=== PATIENT | male | born 1950 | race Caucasian/White ===

== ENCOUNTER 2022-09-08 11:21 | Emergency (ER) | payer MEDICARE, MEDICAID, SELFPAY ==
[2022-09-08 11:22] VITALS: BP 137/92; PULSE 77; RESP 18; TEMP 36.6; O2SAT 100; BMI 28.8
--- NOTE | 2022-09-08 11:37 | ED.VIS.BACK ---
HPI History of Present Illness Chief Complaint: Back Informant: patient Narrative Narrative: Patient has been having pain across his low back worse on the left for about the past week. Gradual in onset, progressively worsening, nothing sudden. 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 He denies any radiation into his lower extremities or numbness, tingling, weakness. No bowel or bladder dysfunction or abdominal pain, no falls or other injuries. Prior similar symptoms: Yes and With Prior Back Pain PFSH PFSH Home Medications hydrocodone-acetaminophen 5-325mg 5mg-325mg 1 tab PO Q4H PRN PRN Pain 2 days #10 TABLETS 09/08/22 [Rx Last Taken Unknown] Allergy/AdvReac Type Severity Reaction Status Date / Time No Known Allergies Allergy Verified 09/08/22 11:23 Social History Smoking Status: Never smoker ROS ROS ED Constitutional Constitutional ED: Denies chills or fever(s) Gastrointestinal Gastrointestinal: Denies abdominal pain, constipation, fecal incontinence, nausea or vomiting Genitourinary Genitourinary ED: Reports other Details: no urinary retention ; Denies abdominal discomfort or urinary incontinence Musculoskeletal Musculoskeletal: Reports as per HPI and back pain; Denies neck pain Integumentary Denies rash or wounds Neurologic Neurologic: Denies headache(s), paresthesias or weakness EXAM Physical Exam Const Vital Signs: 09/08/22 11:22 Temperature 97.8 F Temperature Source Temporal Pulse Rate 77 Respiratory Rate 18 Blood Pressure 137/92 H Blood Pressure Mean 107 Pulse Ox 100 Oxygen Delivery Method Room Air Positive well nourished and well developed General Appearance ED: well developed and NAD HEENT Negative for trauma or tenderness Eyes PERRL and EOMs intact bilaterally Neck full ROM and supple GI normal to inspection, nondistended, normoactive bowel sounds, soft to palpation and non-tender Back/Spine normal to inspection Back/Spine Narrative: Painful range of motion, but patient is able. He has 2 back braces on that he states helps some. He does not have any significant midline tenderness or step-offs, he is very tender in the left paraspinal area but not distally in the SI joint. No discomfort/tenderness on the right. No CVA tenderness. Normal inspection no rashes. Lumbar Spine / Lower Back: ROM limited, paraspinal muscle tenderness and straight leg raise negative bilaterally; Negative for lumbar spinal tenderness Extremity normal to inspection, full ROM and no pedal edema Neuro oriented x3 and no sensory deficits noted Sensorium / Orientation: alert Motor Exam: strength 5/5 throughout and clonus absent Deep Tendon Reflexes: Rt Patellar (L4): 2+, Lt Patellar (L4): 2+, Rt Ankle (S1): 2+ and Lt Ankle (S1): 2+ Deep Tendon Reflexes Back: Rt Patellar (L4): 2+, Lt Patellar (L4): 2+, Rt Ankle (S1): 2+ and Lt Ankle (S1): 2+ Plantar Reflex: Downgoing: bilateral Psych mental status grossly normal and thought process normal Skin no rashes or lesions noted and no wounds MDM MDM MDM Narrative Medical decision making narrative: Given his age I did obtain x-rays of the lumbosacral spine, 3 views of my interpretation negative for any acute, radiology in agreement. They noted pancreatic calcifications. I do not think this patient is having any symptoms related to that, I think it is an incidental finding. In the meantime he was given a [place] and he really felt a lot better, I am fine with prescribing him a short course of this, I think this is all musculoskeletal discomfort, supportive care and follow-up advised. Ambulatory around the room on reevaluation. Radiography Diagnostic Testing: Clinical Impression(s) from Imaging Studies Lumbar Spine X-Ray 09/08/22 11:45 IMPRESSION: Loss of the normal lumbar dose is most likely secondary to muscular spasm. Degenerative changes. Pancreatic calcifications. Electronically Signed: Danny Carey MD at 12:07 EDT Reading Location ID and State: [facility] / [place] , Service support , Discharge Plan Triage Chief Complaint: Back ED Provider: Bari Pride Dx/Rx/DC Orders Clinical Impression: Acute lumbosacral myofascial strain Instructions: ED Back Sprain/Strain Prescriptions: New hydrocodone-acetaminophen [hydrocodone-acetaminophen] 5-325 mg tablet 1 tab PO Q4H PRN PRN (Reason: Pain) 2 Days Qty: 10 0RF Primary Care Provider: Care Physician,No Primary Referrals: Doctor,Your [Non-Staff] - 1 Week if not improving Disposition Disposition: Home, Self Care
[2022-09-08] MEDS: HYDROcodone Bitartrate/Apap 5/325 Tablet PO (11:43)
--- NOTE | 2022-09-08 11:45 | RAD_ITS ---
STUDY: X-RAY - LUMBAR SPINE REASON FOR EXAM: Male, 71 years old. Back pain following a lifting injury. TECHNIQUE: 3 view(s) of the lumbar spine were obtained. COMPARISON: None FINDINGS: There is straightening of the normal lumbar lordosis. There is no substantial scoliosis. There is a normal alignment of the vertebrae. There is multilevel endplate spondylosis of the lumbar vertebrae. Normal disc space heights. Pancreatic calcifications. Evidence of prior inguinal hernia repair. Large amount of fecal material is seen throughout the colon. RAD/Lumbar Spine 2 or 3 Views IMPRESSION: Loss of the normal lumbar dose is most likely secondary to muscular spasm. Degenerative changes. Pancreatic calcifications. Electronically Signed: Danny Carey MD at 12:07 EDT ,
== END 2022-09-08 13:11 | disposition home or self-care (01) ==
PROVIDERS: Emergency Provider Emergency Medicine; Visit Provider Emergency Medicine
DX: S39.012A Strain of muscle, fascia and tendon of lower back, initial encounter (principal); X50.0XXA Overexertion from strenuous movement or load, initial encounter
CPT/HCPCS: 72100; 99283

== ENCOUNTER 2025-01-23 11:06 | Emergency (ER) | payer MEDICARE, MEDICAID, SELFPAY ==
[2025-01-23] VITALS (8 sets, daily range): BP systolic 116–142; BP diastolic 68–75; PULSE 61–78; RESP 14–25; TEMP 36.1; O2SAT 96–100; BMI 28.5
[2025-01-23] MEDS: DiphenhydrAMINE 50 MG/ML Syringe IV (11:16)
[2025-01-23] MEDS: Famotidine 200 MG/20 ML MDV 20 MG in 0.9% Normal Saline (Pres. free 8 ML 300 MG IV (11:18)
[2025-01-23 11:30] LABS: Hematocrit 49.8 % (40-54); Hemoglobin 17.2 g/dL (13.0-16.5); Immature Granulocytes Count 0.040 X10^3/uL (0.0-0.0); Mean Corp Hgb Conc 34.5 g/dL (32-36); Mean Corpuscular Volume 101.8 fL (80-94); Mean Platelet Vol. 10.7 fl (6.2-12.0); NRBC Flagged by Analyzer 0 % (0-5); Platelet Count 283 K/mm3 (150-450); RBC Distribution Width CV 12.8 % (11.6-14.6); RBC Distribution Width SD 48.5 fl (35.1-43.9); Red Blood Count 4.89 M/mm3 (4.6-6.2); White Blood Count 11.9 K/mm3 (4.4-11.0)
[2025-01-23 11:49] LABS: Anion Gap 13 (5-15); BUN 13 mg/dL (4-19); BUN/Creat Ratio 11.6 RATIO (10-20); Calcium,Total 9.4 mg/dL (7.6-11.0); Carbon Dioxide 18.6 mmol/L (21.0-32.0); Chloride 107 mmol/L (98-108); Estimated Creatinine Clearance 52.47 ml/min (50-250); Glucose 124 mg/dL (70-99); Potassium 5.1 mmol/L (3.3-5.1)
--- NOTE | 2025-01-23 12:17 | ED.RN ---
pts brother calls this rn and lets staff know that pt is illiterate and he cannot read or write. this rn was told by pt that he could read. charting updated
--- NOTE | 2025-01-23 12:53 | CM.ED ---
Social Work Reason for visit: No PCP Patient verified that he does not currently have a PCP, patient states that he has not seen a doctor in over 5 years. [facility] provider list offered to patient, patient accepting of same. No further needs at this time. Cecy Alvarez, MEDICINAL CHEMIST, [employer]
--- NOTE | 2025-01-23 13:32 | EDS_ITS ---
HPI History of Present Illness Chief Complaint: Allergic Reaction Informant: patient Onset/Context/Timing Onset: Today Context: Sudden Onset Timing: Continuous Quality: Hives Location: Generalized Worsened by: Nothing Relieved by: Nothing Narrative Narrative: Patient presents with allergic reaction that began today. Patient states she woke up with hives. Patient went to urgent care and was then referred to the emergency department. Patient denies any new soaps, shampoos, fabric softeners, laundry detergents, foods, or other new exposures. Patient denies any itching. Patient states he feels short of breath. Patient denies any chest pain. Patient admits to some nausea but denies any vomiting. PFSH PFSH Medical History no medical history no medical history Home Medications ?Medication ?Instructions ?Recorded ?Last Taken ?Type hydrocodone-acetaminophen 5-325mg 1 tab PO Q4H PRN PRN Pain 2 days 09/08/22 Unknown Rx 5mg-325mg #10 TABLETS prednisone 20 mg tablet 60 mg (3 x 20 mg) PO DAILY # 15 01/23/25 Unknown Rx TABLETS Allergy/AdvReac Type Severity Reaction Status Date / Time No Known Allergies Allergy Verified 01/23/25 11:24 Surgical History no surgical history no surgical history Social History (Updated 01/23/25 @ 13:[address] Harris Fournier, DO) Smoking Status: Current every day smoker tobacco type: cigarettes ROS ROS ED Constitutional Constitutional ED: Denies chills or fever(s) Eyes Eyes: Denies blurry vision or change in vision ENT ENT ED: Denies rhinorrhea or sore throat Cardiovascular Cardiovascular: Denies chest pain or palpitations Respiratory/Chest Respiratory/Chest: Reports dyspnea; Denies cough Gastrointestinal Gastrointestinal: Denies nausea or vomiting Genitourinary Genitourinary ED: Denies dysuria or hematuria Musculoskeletal Musculoskeletal: Denies back pain or neck pain Integumentary Reports rash; Denies abscess Neurologic Neurologic: Denies headache(s) or weakness Allergic/Immunologic Allergic/Immunologic ED: Reports urticaria; Denies mouth swelling EXAM Physical Exam Const Vital Signs: 01/23/25 11:07 01/23/25 12:06 01/23/25 12:15 Temperature 96.9 F L Temperature Source Temporal Pulse Rate 68 62 61 Respiratory Rate 15 17 14 Blood Pressure 142/72 H 119/73 116/75 Blood Pressure Mean 95 88 88 Pulse Ox 100 100 96 Oxygen Delivery Method Room Air 01/23/25 12:31 01/23/25 12:45 01/23/25 13:00 Temperature Temperature Source Pulse Rate 64 63 67 Respiratory Rate 17 25 H 22 H Blood Pressure Blood Pressure Mean Pulse Ox 98 97 96 Oxygen Delivery Method 01/23/25 13:15 Temperature Temperature Source Pulse Rate 64 Respiratory Rate 16 Blood Pressure Blood Pressure Mean Pulse Ox 96 Oxygen Delivery Method Positive well nourished and well developed General Appearance ED: well developed and NAD HEENT Reports moist mucous membranes Neck supple and no JVD Resp normal respiratory effort and clear to auscultation bilaterally Cardio regular rate and regular rhythm GI non-tender and non-distended Palpation: soft Neuro oriented x3, CN's II-XII intact bilaterally and no sensory deficits noted Sensorium / Orientation: alert Motor Exam: strength 5/5 throughout Psych mental status grossly normal Skin Skin Narrative: There is a diffuse patchy urticarial rash noted. There are no vesicles or pustules noted. There are no petechia noted. There is no involvement of the mucous membranes. There is no involvement of the palms or soles. MDM MDM MDM Narrative Medical decision making narrative: Differential diagnosis includes hives, urticaria, and allergic reaction. CBC will be obtained to assess for leukocytosis and anemia. Basic metabolic profile will be obtained to assess for electrolyte abnormality and renal function. Lab Data Attestation: I reviewed the patient's lab results. Lab results narrative: CBC was reviewed. There is a slight leukocytosis of 11.9. Hemoglobin was slightly elevated at 17.2. Platelets were normal. Basic metabolic profile was reviewed and was essentially within normal limits. Labs: Laboratory Results - last 24 hr 01/23/25 11:00 WBC 11.9 H RBC 4.89 Hgb 17.2 H Hct 49.8 MCV 101.8 H MCH 35.2 H MCHC 34.5 RDW Std Deviation 48.5 H RDW Coeff of Majo 12.8 Plt Count 283 MPV 10.7 Immature Gran % (Auto) 0.300 Neut % (Auto) 90.0 H Lymph % (Auto) 6.5 L [place] % (Auto) 2.9 Eos % (Auto) 0.2 Baso % (Auto) 0.1 Absolute Neuts (auto) 10.7 H Absolute Lymphs (auto) 0.78 L Nucleated RBC % 0 Sodium 138 Potassium 5.1 Chloride 107 Carbon Dioxide 18.6 L Anion Gap 13 BUN 13 Creatinine 1.14 Estim Creat Clear Calc 52.47 Est GFR (MDRD) Non-Af 68 BUN/Creatinine Ratio 11.6 Glucose 124 H Calcium 9.4 Treatment and Re-Evaluation :: Patient was given Solu-Medrol, Benadryl, and Pepcid. Patient was feeling better on reevaluation. Patient was advised of his findings. Patient was given a prescription for prednisone. Patient was instructed to take Benadryl as needed for any hives or itching. Patient was instructed to follow-up with a primary care physician in 5 to 7 days. Patient understood and was agreeable with the plan. All questions were answered. Discharge Plan Triage Chief Complaint: Allergic Reaction ED Provider: Harris Fournier Dx/Rx/DC Orders Clinical Impression: Allergic reaction, Urticaria Instructions: ED Hives (Adult) Prescriptions: New prednisone 20 mg tablet 60 mg PO DAILY Qty: 15 0RF No Action hydrocodone-acetaminophen [hydrocodone-acetaminophen] 5-325 mg tablet 1 tab PO Q4H PRN PRN (Reason: Pain) 2 Days Qty: 10 0RF Primary Care Provider: Care Physician,No Primary Referrals: Andrew Leung MD [Med Staff - Sub Assembly Team Worker, Family Practice] - 5-7 Days Care Physician,No Primary [Primary Care Provider, Medical] Activity Restrictions/Additional Instructions: Start your prescription for prednisone tomorrow. You may take [id number] Benadryl as needed for any hives or itching. Print Language: Bengali
== END 2025-01-23 13:52 | disposition home or self-care (01) ==
PROVIDERS: Emergency Provider Emergency Medicine; Visit Provider Emergency Medicine
DX: T78.40XA Allergy, unspecified, initial encounter (principal); L50.9 Urticaria, unspecified; F17.210 Nicotine dependence, cigarettes, uncomplicated; R06.00 Dyspnea, unspecified; D72.829 Elevated white blood cell count, unspecified
CPT/HCPCS: 80048; 85025; 96374; 96375; 99283